=== PATIENT | female | born 1975 | race Caucasian/White ===

== ENCOUNTER 2020-12-15 14:52 | Emergency (ER) | payer MEDICAID ==
[~2020-12-15] VITALS: Ht 165.1 cm; Wt 75.0 kg
[2020-12-15] MEDS ORDERED: CIPR5DRO LEFTEYE (16:52)
[2020-12-15 16:58] VITALS: BP 137/79
== END 2020-12-15 16:59 | disposition home or self-care (01) ==
LOC: ER 14:52
DX: H11.152 Pinguecula, left eye (principal); H10.022 Other mucopurulent conjunctivitis, left eye
CPT/HCPCS: 99283

== ENCOUNTER 2022-08-30 20:13 | Emergency (ER) | payer MEDICAID ==
[~2022-08-30] VITALS: Ht 152.4 cm; Wt 72.1 kg
[~2022-08-30 20:13] MED LIST: CIPR5DRO LEFTEYE
[2022-08-30] MEDS ORDERED: ACETAMINOPHEN 325MG TABLET PO ONE (22:30)
[2022-08-30] MEDS: LIDOCAINE 5% PATCH TOP SCH (22:30)
[2022-08-30] MEDS ORDERED: IBUPROFEN 400MG TABLET PO ONE (22:30)
[2022-08-30] MEDS ORDERED: CIPR-263 MT (22:56)
[2022-08-31] MEDS: LIDOCAINE 5% PATCH TOP SCH ×2 (00:11→00:41)
[2022-08-31] MEDS ORDERED: ACET-2708 MT (00:29)
[2022-08-31] MEDS ORDERED: LIDO700A30 TP (00:29)
[2022-08-31] MEDS ORDERED: METH-653 MT (00:29)
[2022-08-31 00:41] VITALS: BP 146/109
[2022-08-31] MEDS ORDERED: KETOROLAC 60MG/2ML VIAL IM ONE (01:15)
== END 2022-08-31 01:10 | disposition home or self-care (01) ==
LOC: ER 20:13
DX: M25.511 Pain in right shoulder (principal); Z79.899 Other long term (current) drug therapy
CPT/HCPCS: 73030; 93005; 99283; J1885; Z7610

== ENCOUNTER 2022-11-10 14:08 | Emergency (ER) | payer MEDICAID ==
[~2022-11-10] VITALS: Ht 152.4 cm; Wt 64.0 kg
[~2022-11-10 14:08] MED LIST changes: +ACET-2708 MT; +LIDO700A30 TP; +METH-653 MT
[2022-11-10 14:27] VITALS: O2SAT 99
[2022-11-10] MEDS ORDERED: IBUPROFEN 600MG TABLET PO ONE (14:30)
[2022-11-10] MEDS ORDERED: METH-774 MT (15:18)
[2022-11-10 15:53] VITALS: BP 139/91; PULSE 90; RESP 18; TEMP 98.7
== END 2022-11-10 15:55 | disposition home or self-care (01) ==
LOC: ER 14:08
DX: S39.012A Strain of muscle, fascia and tendon of lower back, initial encounter (principal); M25.562 Pain in left knee; W18.30XA Fall on same level, unspecified, initial encounter; Y93.89 Activity, other specified; Y92.89 Other specified places as the place of occurrence of the external cause; Y99.8 Other external cause status
CPT/HCPCS: 73560; 81025; 99283

== ENCOUNTER 2022-12-29 13:50 | Emergency (ER) | payer MEDICAID ==
[~2022-12-29] VITALS: Ht 149.9 cm; Wt 68.0 kg
[~2022-12-29 13:50] MED LIST changes: +METH-774 MT
[2022-12-29 14:08] VITALS: O2SAT 98
[2022-12-29] MEDS ORDERED: ACETAMINOPHEN 325MG TABLET PO ONE (15:15)
[2022-12-29] MEDS ORDERED: IBUPROFEN 400MG TABLET PO ONE (15:15)
[2022-12-29] MEDS ORDERED: LIDOCAINE 5% PATCH TOP SCH (15:15)
[2022-12-29] MEDS ORDERED: IBUP-2028 MT (16:20)
[2022-12-29] MEDS ORDERED: ACET-2708 MT (16:20)
[2022-12-29] MEDS ORDERED: KETOROLAC 60MG/2ML VIAL IM ONE (16:30)
[2022-12-29 16:46] VITALS: BP 124/54; PULSE 104; RESP 16; TEMP 98.3
== END 2022-12-29 16:49 | disposition home or self-care (01) ==
LOC: ER 13:50
DX: M25.551 Pain in right hip (principal); Z79.899 Other long term (current) drug therapy; V49.49XA Driver injured in collision with other motor vehicles in traffic accident, initial encounter; Y93.89 Activity, other specified; Y92.89 Other specified places as the place of occurrence of the external cause; Y99.8 Other external cause status
CPT/HCPCS: 73502; 96372; 99284; J1885; Z7610

== ENCOUNTER 2023-10-07 17:30 | Emergency (ER) | payer MEDICAID ==
[~2023-10-07] VITALS: Ht 121.9 cm; Wt 63.5 kg
[~2023-10-07 17:30] MED LIST changes: +IBUP-2028 MT
[2023-10-07 17:39] VITALS: O2SAT 98
[2023-10-07 18:48] LABS: CLARITY URINE CLEAR (CLEAR); COLOR URINE YELLOW (YELLOW); GLUCOSE URINE NEGATIVE (NEGATIVE); KETONES URINE NEGATIVE (NEGATIVE); LEUKOCYTE ESTERASE URINE NEGATIVE (NEGATIVE); NITRITE URINE NEGATIVE (NEGATIVE); OCCULT BLOOD URINE NEGATIVE (NEGATIVE); PH URINE 6.5 (4.5-8.0); PROTEIN URINE NEGATIVE (NEGATIVE); SPECIFIC GRAVITY URINE 1.006 (1.005-1.030); UROBILINOGEN URINE 0.2 E.U./dL (0.2-1.0)
[2023-10-07] MEDS: IBUPROFEN 600MG TABLET PO STA (19:00)
[2023-10-07 19:26] LABS: EOSINOPHILS % 2.7 % (0.0-5.0); HEMATOCRIT. 38.7 % (36.0-48.0); HEMOGLOBIN. 12.8 g/dL (12.0-16.0); LYMPHOCYTES % 41.6 % (20.0-50.0); MEAN CORPUSCULAR HEMOGLOBIN 27.9 pg (28.0-32.0); MEAN CORPUSCULAR HGB CONC 33.1 g/dL (31.0-37.0); MEAN CORPUSCULAR VOLUME 84.1 fL (81.0-99.0); MEAN PLATELET VOLUME 9.2 fl (7.4-10.4); MONOCYTES % 6.2 % (2.0-8.0); NEUTROPHILS % 48.5 % (40.0-76.0); PLATELET 286 x1000/uL (130-400); RED BLOOD CELL COUNT 4.61 mill/uL (4.2-5.4); RED CELL DISTRIBUTION WIDTH 13.1 % (11.6-14.6); WHITE BLOOD COUNT 9.2 x1000/uL (4.5-11.0)
[2023-10-07 19:29] LABS: CHLORIDE 105 mEq/L (98-107); POTASSIUM 3.8 mEq/L (3.5-5.1); SODIUM 139 mEq/L (136-145)
[2023-10-07 19:30] LABS: CARBON DIOXIDE 27 mEq/L (21-32)
[2023-10-07 19:31] LABS: CALCIUM 9.5 mg/dL (8.7-10.4)
[2023-10-07 19:35] LABS: CREATININE 0.7 mg/dL (0.6-1.0); GLUCOSE 89 mg/dL (70-105)
[2023-10-07 19:36] LABS: UREA NITROGEN BLOOD 13 mg/dL (9-23)
[2023-10-07 19:37] LABS: ALANINE AMINOTRANSFERASE 28 IU/L (10-49); ALBUMIN 4.6 g/dL (3.2-4.8); ASPARTATE AMINOTRANSFERASE 16 IU/L (<34)
[2023-10-07 19:38] LABS: BILIRUBIN TOTAL 0.3 mg/dL (0.1-1.0); PROTEIN TOTAL 7.3 g/dL (6.0-8.3)
[2023-10-07 19:42] LABS: HCG SCREEN NEGATIVE
[2023-10-07] MEDS ORDERED: NAPR220C61 MT (19:47)
[2023-10-07] MEDS ORDERED: LEVO750T68 MT (19:47)
[2023-10-07] MEDS ORDERED: METR-167 MT (19:47)
[2023-10-07 20:34] LABS: BILIRUBIN DIRECT < 0.1 mg/dL (<=3.0)
[2023-10-07 20:55] VITALS: BP 140/88; PULSE 80; RESP 18; TEMP 98.9
== END 2023-10-07 20:56 | disposition home or self-care (01) ==
LOC: ER 17:30
DX: K57.32 Diverticulitis of large intestine without perforation or abscess without bleeding (principal); Z79.899 Other long term (current) drug therapy
CPT/HCPCS: 36415; 74176; 80048; 80076; 81003; 81025; 84703; 85025; 99284

== ENCOUNTER 2024-05-21 23:13 | Emergency (ER) | payer MEDICAID, OTHER ==
[~2024-05-21] VITALS: Ht 152.4 cm; Wt 70.0 kg
[~2024-05-21 23:13] MED LIST changes: +LEVO750T68 MT; +METR-167 MT; +NAPR220C61 MT
[2024-05-21 23:14] VITALS: O2SAT 100
[2024-05-21 23:31] VITALS: BP 157/97; PULSE 102; RESP 18; TEMP 36.7; O2SAT 100
[2024-05-22 00:20] LABS: BASOPHILS % 0.7 % (0.0-2.0); EOSINOPHILS % 1.5 % (0.0-5.0); HEMOGLOBIN. 13.7 g/dL (12.0-16.0); LYMPHOCYTES % 39.3 % (20.0-50.0); MEAN CORPUSCULAR HEMOGLOBIN 28.5 pg (28.0-32.0); MEAN CORPUSCULAR HGB CONC 33.4 g/dL (31.0-37.0); MEAN CORPUSCULAR VOLUME 85.2 fL (81.0-99.0); MEAN PLATELET VOLUME 8.8 fl (7.4-10.4); MONOCYTES % 5.8 % (2.0-8.0); NEUTROPHILS % 52.7 % (40.0-76.0); PLATELET 281 x1000/uL (130-400); RED BLOOD CELL COUNT 4.81 mill/uL (4.2-5.4); RED CELL DISTRIBUTION WIDTH 12.8 % (11.6-14.6); WHITE BLOOD COUNT 9.1 x1000/uL (4.5-11.0)
[2024-05-22 00:45] LABS: CHLORIDE 107 mEq/L (98-107); POTASSIUM 3.3 mEq/L (3.5-5.1); SODIUM 142 mEq/L (136-145)
[2024-05-22 00:46] LABS: CARBON DIOXIDE 28 mEq/L (21-32)
[2024-05-22 00:47] LABS: CALCIUM 9.2 mg/dL (8.7-10.4)
[2024-05-22 00:52] LABS: CREATININE 0.6 mg/dL (0.6-1.0); GLUCOSE 145 mg/dL (70-105); UREA NITROGEN BLOOD 14 mg/dL (9-23)
[2024-05-22 00:56] LABS: TROPONIN I HIGH SENSITIVITY < 4 ng/L (3.0-34)
== END 2024-05-22 02:09 | disposition home or self-care (01) ==
LOC: ER 23:13
DX: R07.89 Other chest pain (principal)
CPT/HCPCS: 36415; 71045; 80048; 84484; 85025; 93005; 99285

== ENCOUNTER 2024-08-03 06:27 | Emergency (ER) | payer MEDICAID ==
[~2024-08-03] VITALS: Ht 152.4 cm; Wt 68.0 kg
[2024-08-03 06:38] VITALS: O2SAT 99
[2024-08-03] MEDS: KETOROLAC 30MG/ML VIAL IV STA (07:17)
[2024-08-03] MEDS: SODIUM CHLORIDE 0.9% 1,000 ML IV ONE (07:18)
[2024-08-03] MEDS: ONDANSETRON HCL 4MG/2ML INJ IV STA (07:18)
[2024-08-03 08:00] VITALS: TEMP 36.8
[2024-08-03 08:04] LABS: BASOPHILS % 0.6 % (0.0-2.0); EOSINOPHILS % 1.2 % (0.0-5.0); HEMATOCRIT. 41.4 % (36.0-48.0); HEMOGLOBIN. 13.8 g/dL (12.0-16.0); LYMPHOCYTES % 36.4 % (20.0-50.0); MEAN CORPUSCULAR HEMOGLOBIN 27.7 pg (28.0-32.0); MEAN CORPUSCULAR HGB CONC 33.3 g/dL (31.0-37.0); MEAN CORPUSCULAR VOLUME 83.2 fL (81.0-99.0); MEAN PLATELET VOLUME 9.2 fl (7.4-10.4); MONOCYTES % 6.4 % (2.0-8.0); NEUTROPHILS % 55.4 % (40.0-76.0); PLATELET 275 x1000/uL (130-400); RED BLOOD CELL COUNT 4.97 mill/uL (4.2-5.4); RED CELL DISTRIBUTION WIDTH 13.2 % (11.6-14.6); WHITE BLOOD COUNT 7.6 x1000/uL (4.5-11.0)
[2024-08-03 08:10] LABS: CARBON DIOXIDE 25 mEq/L (21-32); CHLORIDE 104 mEq/L (98-107); POTASSIUM 3.8 mEq/L (3.5-5.1); SODIUM 142 mEq/L (136-145)
[2024-08-03 08:11] LABS: CALCIUM 9.5 mg/dL (8.7-10.4)
[2024-08-03 08:15] LABS: CREATININE 0.7 mg/dL (0.6-1.0)
[2024-08-03 08:16] LABS: GLUCOSE 142 mg/dL (70-105); UREA NITROGEN BLOOD 19 mg/dL (9-23)
[2024-08-03 08:17] LABS: ALANINE AMINOTRANSFERASE 29 IU/L (10-49); ALBUMIN 4.5 g/dL (3.2-4.8); ASPARTATE AMINOTRANSFERASE 20 IU/L (<34)
[2024-08-03 08:18] LABS: BILIRUBIN DIRECT 0.2 mg/dL (<=3.0); BILIRUBIN TOTAL 0.8 mg/dL (0.1-1.0); PROTEIN TOTAL 7.5 g/dL (6.0-8.3)
[2024-08-03 08:19] LABS: TROPONIN I HIGH SENSITIVITY < 4 ng/L (3.0-34)
[2024-08-03] MEDS ORDERED: TOPUD PO (10:26)
[2024-08-03 10:46] VITALS: BP 136/83; PULSE 83; RESP 14; O2SAT 97
== END 2024-08-03 11:47 | disposition home or self-care (01) ==
LOC: ER 06:27 → CANBEDREQ 10:41 → ER 11:47
DX: Z79.899 Other long term (current) drug therapy (principal)
CPT/HCPCS: 99285; 96374; 76705; 96361; 96375; 80076; 80048; 83690; 85025; 84484; 36415; 93005; J1885; J2405; J7030